=== PATIENT | female | born 1950 | race Caucasian/White ===

== ENCOUNTER 2022-03-08 14:02 | Inpatient (IN) | payer OTHER, MEDICARE, BC ==
[2022-03-08] MEDS ORDERED: Morphine 4 MG/ML VIAL ONE (15:23)
[2022-03-08] MEDS ORDERED: TETANUS, DIPHTHERIA TOX,ADULT (TDVAX) 0.5 ML VIAL IM ONE (15:49)
[2022-03-08] MEDS ORDERED: Ondansetron PF 4 MG/2 ML Vial IVP PRN (15:49)
[2022-03-08] MEDS ORDERED: hydrALAZINE 20 MG/ML VIAL SLOW IVP PRN ×2 (15:49→16:26)
[2022-03-08 17:32] VITALS: BMI 29.7
[2022-03-08] MEDS: Sodium Chloride 0.9% 1,000 ML IV SCH (17:54)
[2022-03-08] MEDS ORDERED: Acetaminophen 500 MG TAB PO SCH (18:00)
[2022-03-08] MEDS: Famotidine/PF 20 mg/2ml Vial SLOW IVP SCH (20:56)
[2022-03-08] MEDS ORDERED: Amlodipine 5 MG TAB PO SCH (21:00)
[2022-03-08] MEDS ORDERED: traMADol HCl 50 MG TAB PO PRN (21:20)
[2022-03-08] MEDS ORDERED: Acetaminophen 325 MG TAB PO PRN (21:20)
[2022-03-08] MEDS ORDERED: Acetaminophen/Codeine 30-300mg Tablet PO PRN (21:20)
[2022-03-08] MEDS ORDERED: HYDROcodone/Acetaminophen 5/325 mg Tablet PO PRN (21:21)
[2022-03-08] MEDS ORDERED: Morphine 4 MG/ML VIAL SLOW IVP PRN (21:34)
[2022-03-09] MEDS: Sodium Chloride 0.9% 1,000 ML IV SCH (03:37)
[2022-03-09 05:54] LABS: #Eosinphils 0.1 thou/uL (0.0-0.7); #Lymphocytes 0.9 thou/uL (1.20-3.40); #Monocytes 0.6 thou/uL (0.11-0.59); #Neutrophils 6.1 thou/uL (1.40-6.50); %Basophils 0.6 % (0.0-1.0); %Eosinophils 1.3 % (0.0-10.0); %Lymphocytes 11.3 % (21.0-51.0); %Monocytes 7.6 % (0.0-10.0); %Neutrophils 79.2 % (42.0-75.0); Hemoglobin 10.6 g/dL (12.0-16.0); Mean Corpuscular HGB CONC 31.1 g/dL (32.0-36.0); Mean Corpuscular Hemoglobin 26.3 pg (27.0-31.0); Mean Corpuscular Volume 84.4 fl (78.0-98.0); Mean Platelet Volume 8.2 fL (7.4-10.4); Platelet Count 143 10x3/uL (130-400); RBC Distribution Width 12.6 % (11.5-14.5); Red Blood Cell (RBC) Count 4.03 mill/uL (4.20-5.40); White Blood Cell (WBC) Count 7.8 10x3/uL (4.8-10.8)
[2022-03-09 06:10] LABS: Anion Gap 10 mmol/L (10-20); BUN (Urea Nitrogen) 12 mg/dL (9.8-20.1); Calc. Creatinine Clearance 92 mL/min (70-130); Calcium 8.4 mg/dL (7.8-10.44); Carbon Dioxide 22 mmol/L (23-31); Chloride 112 mmol/L (98-107); Estimated GFR 85; Glucose 125 mg/dL (83-110); Potassium 3.5 mmol/L (3.5-5.1); Sodium 140 mmol/L (136-145)
[2022-03-09] MEDS: Famotidine/PF 20 mg/2ml Vial SLOW IVP SCH (08:06)
[2022-03-09 08:59] VITALS: BP 115/72; TEMP 97
[2022-03-09] MEDS ORDERED: Lisinopril 20 MG TAB PO SCH (09:00)
== END 2022-03-09 11:40 | disposition home or self-care (01) | DRG 84 ==
LOC: ERS 14:02 → SJJU 15:17
PROVIDERS: ADMIT Specialist; ATTEND Specialist
DX: S06.6XAA Traumatic subarachnoid hemorrhage with loss of consciousness status unknown, initial encounter (principal); R40.2412 Glasgow coma scale score 13-15, at arrival to emergency department; Z20.822 Contact with and (suspected) exposure to COVID-19; I10 Essential (primary) hypertension; Z90.49 Acquired absence of other specified parts of digestive tract; Z90.89 Acquired absence of other organs; Z98.51 Tubal ligation status; V80.010A Animal-rider injured by fall from or being thrown from horse in noncollision accident, initial encounter; Y93.52 Activity, horseback riding; Z79.899 Other long term (current) drug therapy
CPT/HCPCS: 36415; 70450; 70486; 71045; 72100; 72125; 72170; 80048; 85025; 96374; J2270; J7050; S0028; U0003; U0005